=== PATIENT | female | born 1960 | race African-American/Black ===

== ENCOUNTER 2016-05-08 11:59 | Emergency (ER) | payer SELFPAY ==
[~2016-05-08 11:59] MED LIST: CYCL-36 PO; IBUP-232 PO; LEVO150T7 PO; METO25 PO; WAL-10TA2 PO
== END 2016-05-08 12:00 | disposition left against medical advice (07) ==
LOC: NED 11:59
DX: Z53.21 Procedure and treatment not carried out due to patient leaving prior to being seen by health care provider (principal)
CPT/HCPCS: 99281

== ENCOUNTER 2016-05-12 11:03 | Emergency (ER) | payer SELFPAY ==
[2016-05-12 11:06] VITALS: BP 129/78; PULSE 70; RESP 12; TEMP 97.8; O2SAT 96
[2016-05-12] MEDS ORDERED: LEVO150T7 PO ×2 (12:17→12:23)
[2016-05-12] MEDS ORDERED: METO25TA3 PO ×2 (12:17→12:23)
--- NOTE | 2016-05-12 12:17 | PD ---
HPI Chief Complaint: Medication Refill Request Time Seen by Provider: 12:13 Travel History International Travel<30 days: No Contact w/Intl Traveler<30days: No Traveled to known affect area: No History of Present Illness HPI Patient comes in requesting a refill for metoprolol and Synthroid that she's been out of since January secondary to insurance issues. Patient states she's been going without. Patient denies any symptoms from the blood pressure or thyroid. Patient denies any other complaints or concerns. Patient has her empty bottles with her. Denies any chest pain, shortness of breath, nausea, vomiting, abdominal pain, fevers, or headaches. PFSH Past Medical History Arthritis: Yes Cancer: Yes Chemotherapy: Yes (2006) Past Surgical History Gynecologic Surgery: Yes (tubal ligation) Social History Alcohol Use: No Tobacco Use: No Substance Use: No Allergies-Medications (Allergen,Severity, Reaction): Coded Allergies: Iodine (Verified Allergy, Severe, 05/12/16) Reported Meds & Prescriptions Reported Meds & Active Scripts Active Levothyroxine (Levothyroxine Sodium) 150 Mcg Tab 150 Mcg PO DAILY 30 Days Metoprolol Tartrate 25 Mg Tab 12.5 Mg PO BID 30 Days Reported Levothyroxine (Levothyroxine Sodium) 150 Mcg Tab 150 Mcg PO DAILY Metoprolol Tartrate 25 Mg Tab 25 Mg PO BID Review of Systems Except as stated in HPI: all other systems reviewed are Neg Physical Exam Narrative GENERAL: Well-developed, well nourished, in no acute distress, and non-ill appearing. SKIN: Warm and dry. HEAD: Atraumatic. Normocephalic. EYES: Pupils equal and round. EOMI. No scleral icterus. No injection or drainage. ENT: No nasal bleeding or discharge. Mucous membranes pink and moist. NECK: Trachea midline. Supple. No nuclear rigidity. CARDIOVASCULAR: Regular rate and rhythm. No murmur appreciated. RESPIRATORY: No accessory muscle use. No respiratory distress. Clear to auscultation. Breath sounds equal bilaterally. MUSCULOSKELETAL: No obvious deformities. No clubbing. No cyanosis. No edema. Full range of motion. NEUROLOGICAL: Awake and alert. No obvious cranial nerve deficits. Motor grossly within normal limits. Normal speech. PSYCHIATRIC: Appropriate mood and affect; insight and judgment normal. Data Data Last Documented VS Vital Signs Date Time Temp Pulse Resp B/P Pulse Ox O2 Delivery O2 Flow Rate FiO2 1/10/17 11:06 97.8 70 12 129/78 96 Room Air MDM Medical Decision Making Medical Screen Exam Complete: Yes Emergency Medical Condition: No Differential Diagnosis Medication refill, hypertension, hypothyroidism, other Narrative Course Patient in no obvious distress upon re-evaluation. Patient was asked if they wanted to speak to my attending, which the patient did not wish to do at this time. Any questions/concerns in reference to patient diagnosis/condition discussed and clarified prior to patient's discharge. Reinforced sheer importance of close follow up with patient's primary physician or primary care clinic. Instructed patient to return to ED immediately, if symptoms return/ worsen. Pt showed understanding of above instructions. Further instructions and recommendations were detailed in discharge paperwork. Pt ambulated without difficulty out of ED at discharge. Diagnosis Primary Impression: Medication refill Patient Instructions: General Instructions, Medication Refill, ED Departure Forms: Tests/Procedures Additional Instructions: Follow-up with your primary care physician for additional medication refills. Take all medication as prescribed. Return to the emergency department for any emergent concerns. Med/Other Pt SpecificInfo: Prescription(s) given Scripts Levothyroxine 150 Mcg [id number] Mcg PO DAILY 30 Days Ref 0 Prov:Yadira Dickson MD 05/12/16 Metoprolol Tartrate 25 Mg Tab12.5 Mg PO BID 30 Days Ref 0 Prov:Yadira Dickson MD 05/12/16 Disposition: 01 DISCHARGE HOME Condition: Stable Wilfredo Nye May 12, 2016 12:17
== END 2016-05-12 12:37 | disposition home or self-care (01) ==
LOC: NEPB 11:03
DX: R68.89 Other general symptoms and signs (principal); Z76.0 Encounter for issue of repeat prescription; Z91.14 Patient's other noncompliance with medication regimen
CPT/HCPCS: 99281